=== PATIENT | female | born 1965 | race Caucasian/White ===

== ENCOUNTER → 2021-09-26 | Outpatient (CLI) | payer BC | LOC: RAD 09:00 | DX: M77.31 Calcaneal spur, right foot (principal) ==

== ENCOUNTER → 2021-11-07 | Outpatient (CLI) | payer BC | LOC: RAD 08:00 | DX: M79.671 Pain in right foot (principal) ==

== ENCOUNTER → 2024-05-12 | Outpatient (CLI) | payer OTHER | LOC: RAD 08:13 | DX: M17.12 Unilateral primary osteoarthritis, left knee (principal); Z98.890 Other specified postprocedural states; Z87.828 Personal history of other (healed) physical injury and trauma ==